=== PATIENT | female | born 1995 | race African-American/Black ===

== ENCOUNTER 2016-09-23 22:26 | Emergency (ER) | payer SELFPAY | END 2016-09-23 23:40 | disposition home or self-care (01) | LOC: D.ER 22:26 | DX: S16.1XXA Strain of muscle, fascia and tendon at neck level, initial encounter (principal); V43.52XA Car driver injured in collision with other type car in traffic accident, initial encounter; Y93.89 Activity, other specified; Y92.410 Unspecified street and highway as the place of occurrence of the external cause; F17.200 Nicotine dependence, unspecified, uncomplicated ==

== ENCOUNTER 2018-05-23 10:56 | Emergency (ER) | payer MEDICAID ==
[~2018-05-23] VITALS: Ht 167.6 cm; Wt 135.0 kg
[2018-05-23 11:03] VITALS: Ht 167.6 cm; Wt 135.0 kg
[2018-05-23 13:21] VITALS: BP 102/077
== END 2018-05-23 13:22 | disposition home or self-care (01) ==
LOC: D.ER 10:56
DX: O26.891 Other specified pregnancy related conditions, first trimester (principal); Z3A.12 12 weeks gestation of pregnancy; J06.9 Acute upper respiratory infection, unspecified; R09.82 Postnasal drip; R09.89 Other specified symptoms and signs involving the circulatory and respiratory systems

== ENCOUNTER → 2018-09-16 19:34 | Outpatient (CLI) | payer MEDICAID ==
[2018-05-23 11:03] VITALS: BMI 48.0
== END | disposition home or self-care (01) ==
LOC: D.LDO 19:34
PROVIDERS: ATTEND Obstetrics & Gynecology
DX: O99.019 Anemia complicating pregnancy, unspecified trimester (principal); Z3A.00 Weeks of gestation of pregnancy not specified

== ENCOUNTER → 2018-09-30 15:56 | Outpatient (CLI) | payer MEDICAID ==
[2018-05-23 11:03] VITALS: BMI 48.0
[2018-09-30 16:43] LABS: BASOPHILS 0.1 % (0-2); EOSINOPHILS 1.3 % (0-7); HEMATOCRIT 33.9 % (36.0-48.0); HEMOGLOBIN 10.3 g/dL (12-16); IMMATURE GRANULOCYTES 0.1 % (0-5); LYMPHOCYTES 24.5 % (15-50); MCH 23.5 pg (26.0-34.0); MCHC 30.4 g/dL (31.0-37.0); MCV 77.2 fL (80.0-100.0); PLATELET COUNT 202 10x3/uL (130-400); RBC 4.39 10x6/uL (4.00-5.40); RDW 26.1 % (11.5-14.5); WBC 8.2 10x3/uL (4.8-10.8)
[2018-09-30 16:51] LABS: ALBUMIN 2.5 g/dL (3.4-5.0); ALKALINE PHOSPHATASE 143 U/L (46-116); ALT (SGPT) 10 U/L (10-68); BILIRUBIN - TOTAL 0.42 mg/dL (0.2-1.3); CALC OSMOLALITY 269 mosm/kg (275-300); CALCIUM 8.3 mg/dL (8.5-10.1); CARBON DIOXIDE 20.6 mmol/L (21.0-32.0); CHLORIDE - SERUM 103 mmol/L (98-107); CREATININE - SERUM 0.4 mg/dL (0.6-1.3); GLUCOSE 81 mg/dL (74-106); LDH 127 U/L (81-234); POTASSIUM - SERUM 3.9 mmol/L (3.5-5.1); PROTEIN - SERUM 6.6 g/dL (6.4-8.2); SODIUM 137 mmol/L (136-145); UREA NITROGEN 4 mg/dL (7-18); URIC ACID 4.4 mg/dL (2.6-7.2); eGFR NON AFRICAN AMERICAN > 90 mL/min (90-120)
[2018-09-30 17:08] LABS: PROTEIN - URINE 75.9 mg/dL (0.0-11.9)
[2018-09-30 17:10] LABS: CREATININE - URINE 227.9 mg/dL (30-125); PRO/CRE RATIO URINE 0.3 mg/g
== END | disposition home or self-care (01) ==
LOC: D.LDO 15:56
PROVIDERS: ATTEND Obstetrics & Gynecology
DX: O16.3 Unspecified maternal hypertension, third trimester (principal); Z3A.33 33 weeks gestation of pregnancy

== ENCOUNTER 2018-10-07 16:06 | Outpatient (CLI) | payer MEDICAID ==
[2018-05-23 11:03] VITALS: BMI 48.0
[2018-10-07 17:48] LABS: APPEARANCE CLEAR (CLEAR); BILIRUBIN NEGATIVE (NEGATIVE); COLOR YELLOW (YELLOW); GLUCOSE NEGATIVE (NEGATIVE); KETONE NEGATIVE (NEGATIVE); NITRITE NEGATIVE (NEGATIVE); PROTEIN NEGATIVE (NEGATIVE); SPECIFIC GRAVITY 1.015 (1.005-1.020); UROBILINOGEN NORMAL (NORMAL)
[2018-10-07 17:50] LABS: RED CELLS - URINE OCC /hpf (0-5); UDS - AMPHET NEGATIVE QUAL (NEGATIVE); UDS - BARB NEGATIVE QUAL (NEGATIVE); UDS - BENZO NEGATIVE QUAL (NEGATIVE); UDS - COCAINE NEGATIVE QUAL (NEGATIVE); UDS - OPIATE NEGATIVE QUAL (NEGATIVE); UDS - PCP NEGATIVE QUAL (NEGATIVE); UDS - THC NEGATIVE QUAL (NEGATIVE); WHITE CELLS - URINE 0-5 /hpf (0-5)
[2018-10-07 17:51] LABS: BACTERIA MANY /hpf (NONE SEEN)
--- NOTE | 2018-10-07 19:35 | NUR ---
CONSENT FOR TRANSTER SIGNED AT THIS TIME. Paulino CARMEN RN
[2018-10-07 19:38] LABS: HEMATOCRIT 35.5 % (36.0-48.0); HEMOGLOBIN 11.1 g/dL (12-16); MCH 24.6 pg (26.0-34.0); MCHC 31.3 g/dL (31.0-37.0); MCV 78.5 fL (80.0-100.0); MEAN PLATELET VOLUME 10.9 fL (7.4-10.4); RBC 4.52 10x6/uL (4.00-5.40); RDW 26.8 % (11.5-14.5)
--- NOTE | 2018-10-07 19:39 | NUR ---
REPORT CALLED TO JEAN DURAN AT [facility] LABOR AND DELIVERY CHARGE NURSE. Paulino CARMEN RN
--- NOTE | 2018-10-07 19:42 | NUR ---
MAGNESIUM SULFATE MAINTENANCE DOSE UP AT 2 GM/HR. Paulino CARMEN RN
--- NOTE | 2018-10-07 19:58 | NUR ---
AMBULANCE SERVI CE CALLED AND REPORT GIVEN FOR NEED OF TRANSFER. STATES THAT IT WILL BE ONE HOUR FOR TRANSPORT. WAREHOUSE DIRECTOR NOTIFIED OF TRANSFER. Paulino CARMEN RN
--- NOTE | 2018-10-07 20:02 | NUR ---
RAFIQ CALL REC'D FROM AMBULANCE SERVICE. STATES THAT AMBULANCE IS EN ROUTE. Paulino CARMEN RN
--- NOTE | 2018-10-07 20:09 | NUR ---
MASTERSON CATH PLACED AT THIS TIME. Paulino CARMEN RN
--- NOTE | 2018-10-07 20:20 | NUR ---
AMBULANCE HER AND REPORT GIVEN. AMBULANCE TO ROOM AT THIS TIME. Paulino CARMEN RN
--- NOTE | 2018-10-07 20:37 | NUR ---
PT DISCHARGED TO AMBULACE CREW VIA STRETCHER IN STABLE CONDITION. IV SITE PATENT WITH MASTERSON CATH IN PLACE AND MAGNESIUM SULFATE INFUSING AT 2GM/HR. Paulino CARMEN RN
== END 2018-10-07 20:37 | disposition other institution (70) ==
LOC: D.LDO 16:06
PROVIDERS: ATTEND Obstetrics & Gynecology
DX: O30.003 Twin pregnancy, unspecified number of placenta and unspecified number of amniotic sacs, third trimester (principal); Z3A.32 32 weeks gestation of pregnancy